=== PATIENT | male | born 1975 | race Caucasian/White ===

== ENCOUNTER 2016-12-16 05:05 | Emergency (ER) | payer OTHER ==
[2016-12-16 05:15] VITALS: BP 157/104; PULSE 62; RESP 18; TEMP 98.4
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
[2016-12-16 08:08] LABS: Hepatitis C Virus IgG Index 0.02
[2016-12-16 08:12] LABS: Hepatitis B Surface Antibody POSITIVE (Negative); Hepatitis C Virus IgG Ab Negative (Negative)
[2016-12-17 03:53] LABS: HIV-1/HIV-2 Ab Screen NONREAC (NON REAC)
== END 2016-12-16 06:15 | disposition home or self-care (01) ==
LOC: EC 05:05
DX: T18.0XXA Foreign body in mouth, initial encounter (principal); Z77.21 Contact with and (suspected) exposure to potentially hazardous body fluids; X58.XXXA Exposure to other specified factors, initial encounter
CPT/HCPCS: 36415; 86706; 86803; 87389; 99283